=== PATIENT | male | born 1935 | race Caucasian/White ===

== ENCOUNTER 2017-04-04 09:15 | Inpatient (IN) | payer MEDICARE, BC ==
[~2017-04-04] VITALS: Ht 182.9 cm; Wt 74.9 kg
--- NOTE | ~2017-04-04 | DS ---
PATIENT'S NAME: JASON AMARO [facility] AGE: 82 Y [address] ROOM: [address] [address] LOCATION: [facility] ADMIT DATE: 04/04/2017 Discharge Summary DISCHARGE DATE: 04/13/2017 FAMILY PHYSICIAN: Steven Fox MD ATTENDING PHYSICIAN: Blossom Campos SUMMARY: TIME OF EXPIRATION: 1454. PRIMARY DIAGNOSIS: Septic shock. OTHER PRIMARY DIAGNOSES: Include: 1. Acute hypoxic respiratory failure. 2. Left lung collapse from mucus plugging. 3. Hyponatremia. 4. Atrial flutter versus atrial fibrillation. 5. Constipation followed with diarrhea. 6. Small bowel obstruction. 7. Pneumonia. 8. Non ST-segment elevation myocardial infarction. 9. Acute encephalopathy, acute condition. PROCEDURES DONE: For the patient includes central line placement by Dr. Alexandro Nowak, bronchoscopy by Dr. Maurer. LABORATORY DATA: On admission, sodium was 124 prior to expiration was 133, creatinine was stable throughout the hospital stay prior to expiration and on was 0.7, BUN was 25, BUN on admission was 29 which was also stable, potassium on admission 4.6, was repleted, and prior to expiration was 3.3, bicarb on admission was 30, prior to expiration was 26, phosphorus on admission was 4.3, prior to expiration was 1.9. Liver function tests were within normal limits. UA on admission: Leukocytes 25, nitrite negative, wbc rare, procalcitonin 0.35, urine osmolality 644, urine sodium level 40 on admission, CK-MB on admission was 51.4 which was the highest level obtained, amylase 39, lipase 41, repeat lipase 90, amylase 25. Urine sodium random on admission 39, highest level obtained was 110. Urine creatinine on admission was 137. MICROBIOLOGY DATA: Blood culture x2 sets, no growth after 5 days. Blood culture, which was done at the outside facility was Staph aureus per telephone report. Urine culture: No growth at 2 days. Bronchoalveolar lavage with normal respiratory cornelius. Stool for C. diff was negative. RADIOLOGY DATA: Multiple chest x-rays were done. ET tube and NG tube were in satisfactory position. Hazy interstitial parenchymal opacities are present in PATIENT'S NAME: JASON AMARO [facility] AGE: 82 Y [address] ROOM: [id number] [place], [place] [address] LOCATION: GICU ADMIT DATE: 04/04/2017 Discharge Summary DISCHARGE DATE: 04/13/2017 FAMILY PHYSICIAN: Steven Fox MD ATTENDING PHYSICIAN: Blossom Campos the perihilar and right basilar distributions. CT abdomen and pelvis, suspected ileus with no definitive evidence of obstruction. Continued followup is recommended. Small to moderate amount of free fluid within the abdomen and pelvis of uncertain etiology. X-ray of the wrist: External fixation device in place and complete oblique fracture through the midportion of the left second metacarpal bone at the site of the proximal pin of the external fixation device, comminuted distal radius fracture with impaction and slight bone displacement, bone fragmentation and deformity at the lunate which could reflect past surgical bone resection, bone trauma, bone infection, bone deformity at the scaphoid raises the possibility for scaphoid trauma either remote or acute, re CT imaging may be helpful. KUB: Severe ileus unchanged. Nasogastric tube extending below the left diaphragm with distal portion of the stomach with air-fluid, nondistended bowel loops in the abdomen consistent with adynamic ileus. Bowel pattern is stable. CT of the wrist: External fixation device in place, complete oblique fracture through the midportion of the second metacarpal bone at the area of the more proximal of the 2 external fixation device pins, evidence for small avulsion type fracture from the dorsal cortex of the scaphoid, multiple small ossific fragments at the expected area of the lunate, appearance could reflect past bone resection, chronic avascular necrosis, past trauma or past infection with resulting bone destruction, degenerative changes at the wrist with subchondral cyst in multiple carpal bones, minimally displaced intra-articular fracture involving the articular surface of the distal radius, comminuted transverse fracture at the distal metaphysis of the radius with impaction and slight displacement of multiple fracture fragments, a longitudinal fracture line extending proximally from the level of this transverse fracture. Serial chest x-rays: Nasogastric tube and right internal jugular catheter in place. Cardiac enlargement with vascular congestion. Infrahilar and bibasilar opacity, which could reflect edema or infiltrate and atelectasis. Pleural fluid and adjacent lung consolidation at the bases. Echocardiogram: Hypokinesis of the mid anterolateral, the mid inferolateral, the basal inferolateral, the apical lateral, and apical cap segments, contractility of all other segments appeared normal, EF 50%, left atrium is mildly dilated. Mild mitral regurgitation by color Doppler. There is mild to moderate aortic regurgitation by color Doppler. HOSPITAL COURSE: For history of present illness, please take a look at the H and P, which was done by Dr. Alexandro Nowak. Patient was admitted to ICU and was managed for septic shock. The source initially was probably secondary to bilateral lobe pneumonia versus probably also from the ileus. So, the patient was on the ventilator for about 2 days after which he was successfully extubated to nasal cannula. For his small bowel obstruction he had an NG tube placed and this was followed up with serial chest KUB's. Over the 48 hours he was successfully weaned off pressors and his blood pressure remained stable. He did also get the Nephrology consult given his presentation with PATIENT'S NAME: JASON AMARO [facility] AGE: 82 Y [address] ROOM: [place] [address] LOCATION: [facility] ADMIT DATE: 04/04/2017 Discharge Summary DISCHARGE DATE: 04/13/2017 FAMILY PHYSICIAN: Steven Fox MD ATTENDING PHYSICIAN: Blossom Campos hyponatremia and the hyponatremia was essentially managed by the Nephrology team and during the hospital course the patient did get 1 shot of DDAVP with also an improvement in his sodium level. He did also get a Cardiology consult given his significantly elevated cardiac enzymes and so he was managed for non ST-segment elevation KS, however, patient was not a candidate for cardiac cath and he was medically managed. He did also develop some paroxysmal atrial flutter versus AFib which Cardiology managed with amiodarone and the patient was successfully converted back to normal sinus rhythm. Following his extubation and with the resolving of his septic shock, the patient who was started on vancomycin and Zosyn from the first day of his hospital stay had his vancomycin discontinued by April 07 and by April 08 ultimately had his Zosyn discontinued as well since his cultures remained negative and there was no source of an infection. By the third day he was transferred out of the ICU to the regular floor and thereafter he developed some acute encephalopathy which was thought to be secondary to his baseline advanced dementia and also probably was thought to be multifactorial. While on the regular floor on May 19 patient again went into acute hypoxic respiratory failure and chest x-ray which was done showed complete left lung collapse which was thought to be secondary to mucus plugging. The patient subsequently had a bronchoscopy done which was successful. He was intubated and was returned back to the ICU. Also during this time, he did also develop some shock as well and had to be put on pressors. He was successfully weaned off pressors over the next couple of days thereafter and 2 days after the intubation he was put on CPAP. He was holding well on CPAP and on April 13 the patient was extubated, however, he developed worsening respiratory failure and the electronics specialist felt the patient was no longer a candidate for reintubation. Palliative consult was called. Prior to this time after the patient's second intubation family were already leaning towards comfort care. So following extubation for the second time with development of his worsening respiratory status the patient was put on BiPAP and family ultimately decided to make the patient comfort care. After family were present at bedside his BiPAP was discontinued and the patient at 1454 hours. The overall time spent on the discharge summary is about 35 minutes. MD HEATHER LÓPEZ/kaitlynn /[id number] d: 04/14/17 0233 t: 04/16/17 1651, DISCHARGE SUMMARY
--- NOTE | ~2017-04-04 | CON ---
PATIENT'S NAME: JASON AMARO [facility] AGE: 81 Y [address] ROOM: [place] [address] LOCATION: GICU ADMIT DATE: 04/04/2017 Consultation DISCHARGE DATE: FAMILY PHYSICIAN: PHYSICIAN, UNKNOWN ATTENDING PHYSICIAN: RODRIGO SKELTON DATE OF CONSULTATION: 04/05/2017 This is a [facility] Nephrology consultation. REASON FOR CONSULTATION: Hyponatremia. HISTORY OF PRESENT ILLNESS: This is an 81-year-old male patient with a history of dementia, who is transferred from [place], [place] with small-bowel obstruction and sepsis. The patient was initially admitted in [place], [place] for an injury to his right wrist, requiring external fixation. During the patient's stay, he did develop increasing abdominal distention as well as hypotension. The patient's blood pressures were reportedly in the 70s and 80s with increasing hypoxia. At the time of arrival, the patient was on BiPAP therapy and was shortly intubated thereafter. While in [place], the patient was noted to have a sodium of 118 with a normal creatinine. There was evidence of leukocytosis as well as hypotension. The patient was started on 3% saline as well as D5W for blood pressure support. On admission, the patient's sodium had come up to 122. D5W was stopped, and the patient was placed on normal saline by hospitalist. At the time of the exam, the patient is intubated and sedated with sodium level of 131. He continues on Levophed for blood pressure support. The patient is also started on Zosyn and vancomycin for antibiotic coverage. CT performed shows severely dilated bowel with large amount of gas. An NG tube was placed at the time of exam. PAST MEDICAL HISTORY: As listed above including. 1. Hypertension. 2. Dementia. 3. Coronary artery disease, status post coronary artery bypass grafting surgery with subsequent PCI x3. 4. GERD. 5. BPH. 6. Alcohol dependence. 7. Allergic rhinitis. 8. Dyslipidemia. PAST SURGICAL HISTORY: As listed above includin. Coronary artery bypass grafting surgery in 1998. 2. External fixator for the left radial fracture in March of 2017. ALLERGIES: NONE TO MEDICATION.PATIENT'S NAME: JASON AMARO [facility] AGE: 81 Y [address] ROOM: [id number] [place], [place] [address] LOCATION: [facility] ADMIT DATE: 04/04/2017 Consultation DISCHARGE DATE: FAMILY PHYSICIAN: PHYSICIAN, UNKNOWN ATTENDING PHYSICIAN: RODRIGO SKELTON CURRENT HOME MEDICATIONS: 1. Ascorbic acid 500 mg p.o. daily. 2. Aspirin 81 mg daily. 3. Benazepril 20 mg p.o. daily at bedtime. 4. Calcium carbonate 1 tablet p.o. t.i.d. 5. Vitamin D3 5000 units p.o. daily. 6. Docusate 100 mg p.o. daily. 7. Folic acid 1 mg daily. 8. Loratadine 10 mg daily. 9. Multivitamin 1 tablet daily. 10. Omeprazole 20 mg daily at bedtime. 11. Protonix 40 mg daily at bedtime. 12. MiraLAX 17 g p.o. daily p.r.n. constipation. 13. Zocor 40 mg p.o. daily at bedtime. 14. Terazosin 10 mg daily at bedtime. 15. Thiamine 100 mg p.o. daily. SOCIAL HISTORY: The patient is an ex-smoker, quit in 1983. He does drink 3 to 4 whiskey shots per day. There is no history of illicit drug use. He does live at home with his . FAMILY HISTORY: Reviewed and there is no history of renal disease or dialysis per the . REVIEW OF SYSTEMS: Essentially cannot obtain a full review of systems other than what is listed in the HPI due to the patient's intubated and sedated status. PHYSICAL EXAMINATION: VITAL SIGNS: Blood pressure is 112/60, temp is 98.0, heart rate is 94, respiratory rate is 25, weight is 76.4 kg, oxygen is 98% on 80% FiO2 with a PEEP of 8. GENERAL: On exam, this is an elderly male, who is intubated and sedated. HEENT: Head is normocephalic and atraumatic. Eyes: Pupils are equal, round, and reactive to light and accommodation. Nose: Midline. Mouth: No gingival bleeding. Oral mucosa is pink and moist. NECK: Soft and supple. There is no lymphadenopathy or carotid bruits. CARDIOVASCULAR: Regular rate and rhythm. Unable to appreciate any murmurs, rubs, or thrills. RESPIRATORY: Decreased breath sounds bilaterally with crackles noted in the bases bilaterally. The patient is intubated. ABDOMEN: Distended. Unable to obtain bowel sounds. EXTREMITIES: Show no signs of peripheral edema, clubbing, or cyanosis. NEUROLOGICAL: The patient is not able to follow commands as he is sedated currently.PATIENT'S NAME: JASON AMARO [facility] AGE: 81 Y [address] ROOM: [place] [address] LOCATION: [facility] ADMIT DATE: 04/04/2017 Consultation DISCHARGE DATE: FAMILY PHYSICIAN: PHYSICIAN, UNKNOWN ATTENDING PHYSICIAN: RODRIGO SKELTON LABORATORY DATA: Sodium at our facility is 122, up from 118 prior to arrival, is now 131 this morning; potassium 4.6, chloride 84, bicarb is 30, BUN 29, creatinine of 1. IMAGING DATA: Abdominal CT shows bilateral pleural effusions with dense consolidation, worse on the right than the left. He also has [id number] amount of free fluid within the abdomen and pelvis. Chest x-ray shows post intubation ET tube to be in good position, approximately at 3 cm above the edel. ASSESSMENT AND PLAN: 1. Hyponatremia. This is likely secondary to small-bowel obstruction. We have calculated the patient's free water deficit to be 1.1 L. At this time, we are going to continue D5W at a rate of 150 mL an hour over the next 4 hours. We will check a stat sodium at that time, and make further recommendations. Prior records do show the patient's baseline sodium to be 128. We will shoot for a goal of 127 to 130 for correction. 2. Acute respiratory failure. This is per Dr. Atwood. The patient is currently intubated and sedated. 3. History of alcohol abuse. This could be contributing to the patient's baseline low sodium. We will take this into consideration when we correct to a goal of 127 to 130. We will follow closely. We will check urine electrolytes frequently throughout his therapy. 4. Small-bowel obstruction, per hospitalist. This patient has been seen and assessed by Dr. Coleman. His care is being conducted in consultation with Dr. Coleman as well as me. We will plan further recommendations as they are forthcoming. In the interim, the patient is to continue D5W at a rate of 150 mL an hour. KARL HILLS DNP, APRN FOR MD ALEXIS ALBRECHT/modl /[id number] d: 04/06/172114 t: 04/16/17 1634, CONSULTATION REPORT
--- NOTE | ~2017-04-04 | OR ---
PATIENT'S NAME: JASON AMARO [facility] AGE: 82 Y [address] ROOM: [place] [address] LOCATION: GICU ADMIT DATE: 04/04/2017 OR/Procedure Report DISCHARGE DATE: FAMILY PHYSICIAN: Steven Fox MD ATTENDING PHYSICIAN: RODRIGO SKELTON SURGEON: Patrice Maurer MD LEGAL RECORDS CLERK: DATE OF PROCEDURE: 04/04/2017 PROCEDURE: Fiberoptic bronchoscopy with therapeutic suctioning. INDICATIONS FOR PROCEDURE: Left lung collapse with mediastinal shift. CONSENT: Procedure was done emergently as the patient was hypotensive and severely hypoxic. PROCEDURE IN DETAIL: After the initial evaluation, the patient was then put in supine position, bronchoscope was used through a 7.5 ET tube, was advanced to the tracheobronchial tree. The patient tolerated the procedure well. There was no immediate complications, findings and procedure, the visualized portion of the trachea revealed that the trachea is normal in caliber with no endobronchial lesions or secretions. The right mainstem was patent, right upper, middle, and lower lobes were patent with no endobronchial lesions or excessive secretions. The left mainstem was completely blocked by a mucous plug, which was suctioned out, after that, the left upper was patent, the left lower was filled with secretions, which was suctioned out and washed out. The patient tolerated the procedure well. There were no immediate complications. Thank you for allowing me to participate in care of this patient. MD JEAN XIONG/modl /[id number] d: 04/11/17250 t: 05/04/17 1043, OPERATIVE SUMMARY
--- NOTE | ~2017-04-04 | CON ---
PATIENT'S NAME: JASON AMARO [facility] [place] AGE: 81 Y [address] ROOM: [address] [address] LOCATION: [facility] ADMIT DATE: 04/04/2017 Consultation DISCHARGE DATE: FAMILY PHYSICIAN: Physician, Unknown ATTENDING PHYSICIAN: Blossom Campos DATE OF CONSULTATION: 04/07/2017 CHIEF COMPLAINT: Left wrist pain. HISTORY OF PRESENT ILLNESS: Mr. Amaro is a pleasant, 81-year-old, gentleman with a history of dementia, who was transferred from [place], [place] with a small bowel obstruction and sepsis. He initially was admitted to the hospital in [place] for an injury to his left wrist which appeared to be in open fracture that required irrigation and debridement, plus placement of a spanning external fixator device. Per the patient's report, though he is difficult to communicate with, he may have sustained a 2nd fall. For which the x-ray appears to show a fracture of the 2nd metacarpal around the more proximal pin site in the hand. The patient otherwise reports now that he is comfortable with the external fixator in place. He reports that the wrist is still quite sore, though the external fixator provides stability. The patient had been previously intubated, though it is now extubated with an NG tube in place. Despite some confusion, he is able to answer questions directly. Currently, the patient denies any constitutional symptoms of fever, chills, or night sweats. He also denies any dizziness, chest pain, shortness of breath, blurred vision, nausea, vomiting, or diarrhea. REVIEW OF SYSTEMS: A 10-point review of systems is otherwise as mentioned above. The patient's issue in this case pertains to his left upper extremity, the issue is musculoskeletal, there is pain, swelling, and some discomfort at the left wrist. There is a spanning external fixator in place. PAST MEDICAL HISTORY: Hypertension, dementia, coronary artery disease, GERD, BPH, alcohol dependence, allergic rhinitis, dyslipidemia. PAST SURGICAL HISTORY: Includes coronary artery bypass grafting surgery 1998, there was placement of external fixator, spanning external fixator of the left upper extremity done in March of 2017. ALLERGIES: PATIENT'S NAME: JASON AMARO [facility] [place] AGE: 81 Y [address] ROOM: [address] [address] LOCATION: [facility]U ADMIT DATE: 04/04/2017 Consultation DISCHARGE DATE: FAMILY PHYSICIAN: Physician, Unknown ATTENDING PHYSICIAN: Blossom Campos NO KNOWN DRUG ALLERGIES. MEDICATIONS: Currently include, 1. Cordarone. 2. Dextrose. 3. Heparin. 4. Hytrin. 5. Calcium chloride. 6. Levophed. 7. Lipitor. 8. Protonix. 9. Vancomycin. 10. Zosyn. SOCIAL HISTORY: The patient has a previous history of tobacco use, though he quit in 1983. He drinks 3-4 whiskey shots per day. There is no history of illicit drug use. He lives at home with his . FAMILY HISTORY: Reviewed. There is no history of renal disease with dialysis per his . PHYSICAL EXAMINATION: VITAL SIGNS: Temperature 98.5, respirations 28, heart rate of 95, blood pressure 158/89. GENERAL: He is awake and alert x2. He is he is currently extubated. He is able to answer pointed questions. He is in no acute distress. HEENT: Normocephalic and atraumatic. Extraocular movements are intact. PERRLA. Moist mucous membranes. Oropharyngeal airway is clear. NECK: Supple. Trachea is in midline. CARDIOVASCULAR: Regular rate and rhythm. CHEST: Normal. Symmetric respirations observed bilaterally. ABDOMEN: Soft. Nontender, nondistended. PELVIS: Stable. MUSCULOSKELETAL: Left upper extremity: Focal examination of the patient's left upper extremity reveals that he is grossly neurologically intact distally. He has able to range his fingers without difficulty. There is tenderness to palpation of the wrist along with swelling. There was approximately 4 cm longitudinal incision over the ulnar border of the wrist that appears to have been closed with a nylon suture. Likely statement services representative of previous open fracture, there was a spanning external fixator in place. The patient did note sensation to be intact to light touch throughout the AIN/PIN/median/radial/ulnar nerve distributions. PATIENT'S NAME: JASON AMARO [facility] [place] AGE: 81 Y [address] ROOM: [address] [address] LOCATION: [facility]U ADMIT DATE: 04/04/2017 Consultation DISCHARGE DATE: FAMILY PHYSICIAN: Physician, Unknown ATTENDING PHYSICIAN: Blossom Campos IMAGING: Plain radiographs of the left wrist reveal evidence of a comminuted intra- articular distal radius fracture that appears out to length. There was evidence of a spanning external fixator in place. There appears to be a fracture of the 2nd metacarpal at one of the pin sites. LABORATORY DATA: Includes CBC: Hemoglobin of 8.9, hematocrit 25.7, white blood cell count of 7.9, platelet count 189. Chem-7 reveals sodium 131, potassium 3.3, chloride 97, CO2 26, BUN 8 and creatinine 0.6, and glucose 124. IMPRESSION: 1. Left comminuted intra-articular open fracture of the distal radius with oblique fracture of the midportion of the second metacarpal. 2. Severe hyponatremia. 3. Acute respiratory failure. 4. Alcohol dependence. 5. Small bowel obstruction. 6. Septic shock. PLAN: I had a conversation with the patient this morning to the best of my ability. He does report pain in the wrist. There is an external fixator in the left upper extremity in place. I suspect the patient may have had a fall subsequent to placement of this external fixator as there is also now fracture of the 2nd metacarpal at one of the distal pin sites. Regardless, the external fixator has held the distal radius out to length. I suspect the patient may have had an open fracture, seeing that there is also sutures at the ulnar border of the wrist that appear to be healing. Based on the current set of circumstances, I am going to recommend a CT scan of the left wrist and hand to better characterize the fractures. As far as long-term treatment, this injury could be potentially treated definitively in this spanning external fixator for 8- 12 weeks, if the patient's medical status precludes a trip to the operating room. If the patient is medically stable, I would move to take the patient to the operating room to remove the spanning external fixator and perform an open reduction and internal fixation of his left distal radius and 2nd metacarpal bones. I did discuss the risks, benefits, and alternatives pursuing a surgical intervention with the patient in detail. He understands this. I will likely have to speak to the family as well, to obtain any form of consent, though under the circumstances, if the patient is medically cleared, I would like to proceed with surgery in the next week. For now, local pin care to the external fixator at pin sites can be done with Hibiclens and warm water. A Kerlix dressing may be placed around the pin sites for now. He may consult Physical Therapy and Occupational Therapy for range of motion of the elbow and fingers. I will await the results of the CT scan of the wrist and hand going PATIENT'S NAME: JASON AMARO [facility] [place] AGE: 81 Y [address] ROOM: [place] [address] LOCATION: [facility] ADMIT DATE: 04/04/2017 Consultation DISCHARGE DATE: FAMILY PHYSICIAN: Physician, Unknown ATTENDING PHYSICIAN: Blossom Campos forward. MD LISA GEORGE/kaitlynn /[id number] d: 04/07/17 1252 t: 04/08/17 1043, CONSULTATION REPORT
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
--- NOTE | ~2017-04-04 | OR ---
PATIENT'S NAME: JASON AMARO [facility] AGE: 82 Y [address] ROOM: [place] [address] LOCATION: GICU ADMIT DATE: 04/04/2017 OR/Procedure Report DISCHARGE DATE: FAMILY PHYSICIAN: Steven Fox MD ATTENDING PHYSICIAN: RODRIGO SKELTON SURGEON: Jersey Andersen MD STOCK RAISER: DATE OF PROCEDURE: 04/10/2017 PROCEDURE: Intubation. INDICATION: Acute hypoxic respiratory failure. PROCEDURE NOTE: Decision to do intubation was emergent. The patient was preoxygenated with 15 L of nasal cannula as well as 15 L of non-rebreather mask. Vitals were stable before the intubation. Induction was achieved using ketamine and 10 of etomidate. Using a GlideScope, vocal cords were visualized. ET tube of 7.5 was passed and was seen advancing through the vocal cords. End-tidals were noted to be 35. Tube length at 25 cm at the lips. Post procedure, the patient did develop shock with the systolic blood pressures diving down into the 40s, which was secondary to his left lung collapse, decreased venous return, as well as medication induced. Push dose pressor agents were used to restore the blood pressure. The patient was stabilized after doing the emergent bronchoscopy by Dr. Maurer. Post intubation chest x-ray showed adequate positioning of the tube. The patient was placed in the ICU. MD BRIANNA CHRISETNSEN/modl /[id number] d: 04/11/17 0445 t: 04/27/17 1512, OPERATIVE SUMMARY
--- NOTE | ~2017-04-04 | OR ---
PATIENT'S NAME: JASON AMARO [facility] AGE: 81 Y [address] ROOM: [place] [address] LOCATION: GICU ADMIT DATE: 04/04/2017 OR/Procedure Report DISCHARGE DATE: FAMILY PHYSICIAN: PHYSICIAN, UNKNOWN ATTENDING PHYSICIAN: RODRIGO CAMPOS SURGEON: Rodrigo Campos MD FLOOR FRAMER: DATE OF PROCEDURE: 04/04/2017 PROCEDURE PERFORMED: Right internal jugular venous catheter with ultrasound. INDICATION: Acute respiratory failure and shock with metabolic acidosis. CONSENT: Consent was given by the patient's family. PROCEDURE SUMMARY: A time-out was performed. The patient's right neck region was prepped and draped in sterile fashion using chlorhexidine. Scrubbed anesthesia was achieved with 1% lidocaine solution. The right internal jugular vein was assessed under ultrasound guidance using a fine needle. Ultrasound images were not permanently documented, however. Venous blood was withdrawn and a guidewire was advanced through the needle and the needle was withdrawn. A small incision was made with a 10 blade scalpel. A dilator was advanced over the guidewire until appropriate dilation was obtained. A 7- [place] central venous triple-lumen catheter was advanced over the guidewire and secured into the sutures at 18 cm. The guidewire was removed. At the time of procedure completion, all ports aspirated and flushed properly. Postprocedure x-ray showing appropriate placement of catheter tip of the cavoatrial junction. COMPLICATIONS: None. ESTIMATED BLOOD LOSS: Less than 10 mL. RODRIGO CAMPOS MD BG/modl /[id number] d: 04/04/172041 t: 04/27/17 1524, OPERATIVE SUMMARY
--- NOTE | ~2017-04-04 | CON ---
PATIENT'S NAME: JASON AMARO [facility] AGE: 82 Y [address] ROOM: [place] [address] LOCATION: GICU ADMIT DATE: 04/04/2017 Consultation DISCHARGE DATE: 04/13/2017 FAMILY PHYSICIAN: Steven Fox MD ATTENDING PHYSICIAN: Blossom Campos DATE OF CONSULTATION: 04/13/2017 PALLIATIVE MEDICINE CONSULTATION LOCATION: ICU Room [facility]. REFERRING PROVIDER: Maninder hWite MD CHIEF COMPLAINT/REASON FOR CONSULTATION: Palliative Care referral for goals of care and most likely transition to comfort measures only. HISTORY OF PRESENT ILLNESS: The patient is an 82-year-old male with a history of dementia, who is transferred to [facility] from [place], [place] where he was inpatient and being treated with antibiotics for a possible infection in his wrist. While in [place], the patient developed hypotension, hypoxia, and abdominal distention and was transferred to higher level of care for evaluation of his small bowel obstruction. On evaluation here, the patient was found to be in septic shock secondary to either bilateral lobe pneumonia versus an ileus. He required ventilation. He was extubated after two days and was in the progressive care unit where he developed some encephalopathy and respiratory distress. He was found to have a collapsed lung. He underwent bronchoscopy and was reintubated. On the morning of my consultation, the patient had been extubated to high-flow oxygen, but later developed acute respiratory failure, and was placed on BiPAP. Given the patient's overall poor condition, Palliative Care was consulted to assist family with goals of care conversation as prior to this second intubation family had already been considering comfort measures only. PAST SURGICAL HISTORY: Left ulnar and radius fracture with external fixator placement. PAST MEDICAL HISTORY: 1. Dementia. 2. Recent falls with left radius and ulnar fractures. 3. Hypertension. PATIENT'S NAME: JASON AMARO [facility] AGE: 82 Y [address] ROOM: [place] [address] LOCATION: GICU ADMIT DATE: 04/04/2017 Consultation DISCHARGE DATE: 04/13/2017 FAMILY PHYSICIAN: Steven Fox MD ATTENDING PHYSICIAN: Blossom Campos 4. Hyperlipidemia. 5. BPH. 6. Coronary artery disease. MEDICATIONS: Please see current MAR. ALLERGIES: NO KNOWN ALLERGIES. SOCIAL HISTORY: No history of tobacco or alcohol use. Prior to this, patient was living at home with his as primary caregiver. FAMILY HISTORY: Reviewed with family and noncontributory. REVIEW OF SYSTEMS: As per HPI, the patient is a poor historian and is unable to complete full review of systems. PHYSICAL EXAMINATION: VITAL SIGNS: Blood pressure 172/88, heart rate 104, temperature 98.0, respirations 38, and O2 saturation is 88% on 100% on the BiPAP. GENERAL: Reveals a frail-appearing elderly white male, who is lying in the intensive care unit. Does appear to be in moderate respiratory distress on the BiPAP. He opens his eyes. Does not follow commands. Does squeeze my hand when I hold his hand. Otherwise, is nonverbal and does not answer questions for me. HEENT: Normocephalic and atraumatic. Pupils are equal and reactive to light. Sclerae nonicteric. Does have the BiPAP on. He breathes with his mouth wide open. Tongue and mucous membranes are dry. CARDIOVASCULAR: Heart tones are regular. Tachycardic. I am not able to note a murmur. RESPIRATORY: Respirations are labored. Tachypneic. Open-mouth breathing. Lung sounds are coarse bilaterally. Does have some occasional short periods of apnea. GASTROINTESTINAL: Abdomen is soft. Bowel sounds are present. GENITOURINARY: Orr catheter is intact with adequate amounts of leigh ann urine. MUSCULOSKELETAL: Does have an external fixator to his left wrist. There is no erythema or swelling. SKIN: Warm and dry. No unusual lesions. Did not examine backside. NEUROLOGICAL: Moves spontaneously. Does not follow commands. Does squeeze my hand with stimuli. PATIENT'S NAME: JASON AMARO [facility] AGE: 82 Y [address] ROOM: [place] [address] LOCATION: GICU ADMIT DATE: 04/04/2017 Consultation DISCHARGE DATE: 04/13/2017 FAMILY PHYSICIAN: Steven Fox MD ATTENDING PHYSICIAN: Blossom Campos IMPRESSION AND PLAN: 1. Respiratory distress. We will add p.r.n. morphine and Ativan as well as give a dose of Robinul prior to taking off the BiPAP. 2. Frailty. 3. Code Status: The patient is a DNR. I met with the patient's family at bedside. They informed me that they wish to let the patient be comfortable. This is what they had told the nurse on the phone prior to arriving here. Discussed with them their concerns as far as symptom management. Provided education to them in regard to using morphine and Ativan to help with air hunger and anxiety as well as giving some Robinul to help with secretions so that to help prevent other distress especially for the family. Provided emotional support, offered spiritual care which was declined by the family. The patient was removed from the BiPAP with myself and ICU nurse present after premedicating with IV morphine and Robinul as well as Ativan. The patient remained comfortable and fairly quickly and at 1454 hours with myself, ICU nurse, and family at the bedside. Provided emotional support for the family. A total of 65 minutes were spent at bedside, greater than 50% of this time was spent in providing education to family on end-of-life symptom management as well as giving orders for symptom management during the withdrawal process. Thank you for allowing me to assist with this patient and family. FAB JACQUES NP FOR JESSICA SPRINGER MD DLS/modl /[id number] CC: Maninder White MD d: 04/17/17 1405 t: 04/24/17 1019, CONSULTATION REPORT
--- NOTE | ~2017-04-04 | CON ---
PATIENT'S NAME: JASON AMARO [facility] AGE: 81 Y [address] ROOM: [place] [address] LOCATION: GICU ADMIT DATE: 04/04/2017 Consultation DISCHARGE DATE: FAMILY PHYSICIAN: PHYSICIAN, UNKNOWN ATTENDING PHYSICIAN: RODRIGO SKELTON REQUESTING: Hospitalist Service. REASON: Elevated cardiac enzymes. HISTORY OF PRESENT ILLNESS: The patient is an 81-year-old gentleman who was transferred to [facility] from [facility] in [place] on April 04. The patient was initially in a swing bed there following a left radial fracture, but then he developed respiratory distress, a distended abdomen, progressive hyponatremia, and hypoxemia, and he was transferred to [facility] where his evaluation showed septic shock and hypoxic respiratory failure. The patient was placed on antibiotics, vasopressor with norepinephrine, and was intubated. He had profound hyponatremia with a sodium of 118, and that was addressed as well by the Renal Service. Yesterday, a set of cardiac enzymes was obtained that showed a total CK of 564, CK-MB of 51.4, and troponin 28.6. I could not find an electrocardiogram. Today, the repeat enzymes, CK is down to 177, the CK-MB is down to 12, and the troponin is down to 10. The proBNP on April 04 was 4451. An electrocardiogram today shows atrial flutter, low voltage in the limb leads, overall rate of 106, occasional premature ventricular contractions, right bundle-branch block, and no significant ST elevation or depression. His chest x-ray shows small effusions and congestion. PAST MEDICAL HISTORY: Obtained from the chart and the registered nurse. The family is not present. REVIEW OF SYSTEMS: Impossible. PAST MEDICAL HISTORY: Positive for coronary artery disease with remote coronary artery bypass graft and subsequent 3 stents, details unknown to me. He also has hypertension, dementia, active alcohol use, and benign prostatic hypertrophy. MEDICATIONS: His outpatient medications include: 1. Aspirin. 2. Benazepril. 3. Omeprazole. PATIENT'S NAME: JASON AMARO [facility] AGE: 81 Y [address] ROOM: [place] [address] LOCATION: GICU ADMIT DATE: 04/04/2017 Consultation DISCHARGE DATE: FAMILY PHYSICIAN: PHYSICIAN, UNKNOWN ATTENDING PHYSICIAN: RODRIGO SKELTON 4. Simvastatin. 5. Terazosin. 6. . 7. Protonix. 8. Levophed. 9. Vancomycin. 10. Versed. 11. Zosyn. 12. Hytrin. 13. Zocor. 14. Heparin subcutaneously for DVT prophylaxis. PHYSICAL EXAMINATION: GENERAL: An elderly gentleman who appears somewhat older than his chronologic age. VITAL SIGNS: Height is 6 feet, weighs 76.3 kg. Blood pressure 101/67, pulse 91, and temperature 98.9. NECK: No obvious jugular venous distention. No carotid bruits. LUNGS: Clear anteriorly. HEART: Distant, irregular first and second heart sounds. ABDOMEN: Somewhat protruding. Overall, soft. LOWER EXTREMITIES: Mild edema of the thighs and decreased pedal pulses. DIAGNOSTIC STUDIES: Described. IMPRESSION: 1. Non-ST elevation myocardial infarction. The peak enzymes were yesterday. So, 24 hours later, the patient appears to tolerate this well, and given his comorbidities, he is not a very good candidate for invasive approach. 2. New-onset atrial flutter. We will try to cardiovert with intravenous amiodarone. An echocardiogram was performed, and I will follow with this. Thank you for allowing us to participate in the care of Mr. Amaro. GALENAYOTISROHIT PATTEN MD PE/modl /[id number] d: 04/06/17 1525 t: 04/08/17 1011, CONSULTATION REPORT
--- NOTE | ~2017-04-04 | HP ---
PATIENT'S NAME: JASON AMARO [facility] AGE: 81 Y [address] ROOM: [place] [address] LOCATION: [facility] ADMIT DATE: 04/04/2017 History & Physical DISCHARGE DATE: FAMILY PHYSICIAN: PHYSICIAN, UNKNOWN ATTENDING PHYSICIAN: RODRIGO SKELTON DATE OF SERVICE: CHIEF COMPLAINT: Small bowel obstruction, septic shock. HISTORY OF PRESENT ILLNESS: This is an 81-year-old male with a history of dementia who is transferred from [place], [place] for evaluation and workup of hypertension, hypoxia, and abdominal distention. The patient initially was admitted there after he had an injury to his wrist and was found to have a fracture that was managed with an external fixation. The patient during the subsequent stay there was noted to have increasing abdominal distention and then by today morning, continued to have worsening distention with blood pressure in the 70s and 80s as well as increasing hypoxia. The patient on my evaluation here after his arrival appears agitated and confused, but can somewhat answer questions. He is also complaining of abdominal distention and discomfort which is visible by reactions during my exam. I was not able to get any further history from him due to the patient' status currently. PAST MEDICAL HISTORY: Dementia, hypertension, hyperlipidemia, and BPH. SOCIAL HISTORY: No reports of alcohol, drugs, or tobacco use. FAMILY HISTORY: Unable to gather this information due to the patient's mental status and family was not around to gather this information as well. REVIEW OF SYSTEMS: Again, unable to conduct a full review of systems due to the patient's mental status and there was not anyone in the family to help answer some questions as well. PHYSICAL EXAMINATION: VITAL SIGNS: Blood pressure 79/52 on presentation, afebrile, O2 saturation 88%, respiratory rate 22. GENERAL: Ill-appearing elderly male, appears to be in significant amount of stress. PATIENT'S NAME: JASON AMARO [facility] AGE: 81 Y [address] ROOM: [place] [address] LOCATION: [facility] ADMIT DATE: 04/04/2017 History & Physical DISCHARGE DATE: FAMILY PHYSICIAN: PHYSICIAN, UNKNOWN ATTENDING PHYSICIAN: RODRIGO SKELTON HEENT: Dry mucosal membranes. Conjunctival pallor noted. No scleral icterus. SKIN: Without rash or lesions. CHEST: Diminished breath sounds diffusely, but no wheezing. HEART: S1, S2. Regular rate and rhythm. Tachycardic. ABDOMEN: Distended, tympanic, tender to palpation diffusely with minimal bowel sounds. NEUROLOGIC: Grossly nonfocal. MUSCULOSKELETAL: Left wrist external fixation device in place. ASSESSMENT AND PLAN: 1. Severe sepsis with shock. Likely origin would be abdominal etiology noting his abdominal distention and possible small bowel obstruction. We will treat with aggressive fluid resuscitation, broad-spectrum antibiotics, and work up abdominal process with a stat CT scan. 2. Small bowel obstruction. NG in place with significant amount of bilious material suctioned out. We will get a stat CT scan to assess further. 3. Hyponatremia. Sodium from outside labs was 118 on presentation. This is likely due to his abdominal issues. We will treat with IV normal saline and closely monitor sodium levels. 4. Hypertension. We will hold all blood pressure medications in the setting of sepsis. 5. Dementia. This is stable. 6. Hyperlipidemia. We will continue his home medications. 7. Benign prostatic hypertrophy. We will continue his home medications as well. 8. Code status. Per report from the outside facility that he is DNR/DNI. 9. Deep venous thrombosis prophylaxis. We will use subcutaneous heparin t.i.d. MD GEOVANNA BERUMEN/kaitlynn /[id number] D: [id number] T: [id number] HISTORY & PHYSICAL
--- NOTE | ~2017-04-04 | ECHO ---
Transthoracic Echocardiography Report (TTE) Demographics Patient Name JASON AMARO Date of Study 04/06/2017 Patient Number [id number] Visit Number [id number] Date of 1935 Room Number G6215 Accession Number [id number] Gender Male Age 81 year(s) Referring Rai Corea Jet Man Eliana Lobato [facility] Physician Physician Interpreting Alvina Garcia Procurement Coordinator Physician A MD Supervising Ordering Physician MD/MLP Nurse Stress Head Counselor Conclusions Contractility Score Summary At rest the following contractility abnormalities were noted: Hypokinesis of the Mid inga-lateral, the Mid infero-lateral, the Basal infero-lateral, the Apical lateral and the Apical cap segments. Contractility of all other segments appeared normal. Summary The estimated left ventricular ejection fraction is 50%. Diastolic function indeterminate due to patient's arrhythmia. The left atrium is mildly dilated by LA volume index measurement. Mild mitral regurgitation by color Doppler. There is mild to moderate aortic regurgitation by color Doppler. Mild tricuspid regurgitation by color Doppler. There is mild pulmonary hypertension. The pulmonary pressure (RVSP) is 40 mmHg. Mild pulmonic valve regurgitation by color Doppler. Procedure Type of Study TTE procedure:2D Echocardiogram. Procedure Date Date: 04/06/2017 Start: 10:35 AM Study Location: Inpatient Portable Technical Quality: Adequate visualization Indications:Dyspnea/SOB. Appropriate Use Criteria: 9 Patient Status: Routine HR: 91 bpm BP: 108/49 mmHg M-Mode/2D Measurements LV Diastolic Dimension: 3.58 cm LV Systolic Dimension: 2.46 cm LV Septum Diastolic: 1.04 cm LV PW Diastolic: 1.07 cm AO Root Dimension: 2.8 cm Cardiac Output: 4.57 l/min LA Dimension: 4.2 cm EF Estimated: 55 % LVOT: 2 cm LVOT VTI: 16 cm RV Base: 2.56 cm LV Stroke volume: 50.24 ml RV Length: 7.72 cm TAPSE: 1.97 cm TDI-S': 11.3 cm/s Doppler Measurements AV Peak Velocity: 1.16 m/s MV Peak E-Wave: 1.17 m/s AV Peak Gradient: 5.38 mmHg AV Mean Gradient: 3 mmHg MV P1/2t: 45 msec LVOT Peak Velocity: 1.08 m/s TR Velocity:2.74 m/s PV Peak Velocity: 1.34 m/s TR Gradient:30.03 mmHg PV Peak Gradient: 7.18 mmHg Estimated RAP:10 mmHg Estimated PASP: 40.03 mmHg Estimated RVSP: 40 mmHg A' Septal Velocity: 0.05 m/s E' Septal Velocity: 0.14 m/s Findings Left Ventricle Diastolic function indeterminate due to patient's arrhythmia. The left ventricle is normal in size . Mild concentric left ventricular hypertrophy. Right Ventricle Normal right ventricle structure and function. Left Atrium The left atrium is mildly dilated by LA volume index measurement. Right Atrium Normal right atrial size. IVC not visualized, no subcostal window Mitral Valve Mild mitral regurgitation by color Doppler. Aortic Valve There is mild to moderate aortic regurgitation by color Doppler. Tricuspid Valve Mild tricuspid regurgitation by color Doppler. There is mild pulmonary hypertension. The pulmonary pressure (RVSP) is 40 mmHg. Pulmonic Valve Mild pulmonic valve regurgitation by color Doppler. Pericardial Effusion No evidence of pericardial effusion. Pleural Effusion No evidence of pleural effusion. Contractility Score LV regional wall motion:(0-Non visualized 1-Normal 2-Hypokinesis 3-Akinesis 4-Dyskinesis 5-Aneurysm) Signature dtt: Nora Tinsley dtd: 04/06/17 1035 Physician Self Edit
[2017-04-04] MEDS ORDERED: ASPIRIN LO-DOSE81 MG PO (10:59)
[2017-04-04] MEDS ORDERED: ASCORBIC ACID500 MG PO (10:59)
[2017-04-04] MEDS ORDERED: BACTRIM DS1 TAB PO (10:59)
[2017-04-04] MEDS ORDERED: COLACE100 MG PO (11:00)
[2017-04-04] MEDS ORDERED: LOTENSIN20 MG PO (11:00)
[2017-04-04] MEDS ORDERED: CALCIUM 600 +1 EA12 PO (11:00)
[2017-04-04] MEDS ORDERED: FOLIC ACID1 MG PO (11:01)
[2017-04-04] MEDS ORDERED: MIRALAX17 GM PO (11:01)
[2017-04-04] MEDS ORDERED: CLARITIN10 MG PO (11:01)
[2017-04-04] MEDS ORDERED: PRILOSEC20 MG PO (11:02)
[2017-04-04] MEDS ORDERED: MULTIPLE VITAM1 EACH PO (11:02)
[2017-04-04] MEDS ORDERED: TERAZOSIN HCL10 MG PO (11:03)
[2017-04-04] MEDS ORDERED: ZOCOR40 MG PO (11:03)
[2017-04-04] MEDS ORDERED: PROTONIX40 MG PO (11:03)
[2017-04-04] MEDS ORDERED: VITAMIN D35000 UNI1 PO (11:04)
[2017-04-04] MEDS ORDERED: THIAMINE HCL100 MG PO (11:04)
[2017-04-04 11:20] LABS: BICARBONATE 31.2 mmol/L (18.0-23.0); PCO2 54 mmHg (35-45); PO2 66 mmHg (80-90)
[2017-04-04 12:00] LABS: BASOPHIL % 0.2 %; HEMATOCRIT 29.1 % (33.0-50.0); HEMOGLOBIN 10.2 g/dL (11.0-16.0); IMMATURE GRANULOCYTE # 0.2 K/uL (0.0-0.3); IMMATURE GRANULOCYTE % 1.1 %; LYMPHOCYTE # 0.5 K/uL (0.8-4.0); LYMPHOCYTE % 2.6 %; MCH 34.2 pg (27.0-34.0); MCHC 35.1 gm/dL (32.0-36.5); MCV 97.7 fl (83.0-98.0); MONOCYTE # 1.4 K/uL (0.0-1.0); MONOCYTE % 7.6 %; MPV 8.6 fl (9.4-12.4); NEUTROPHIL # (ANC) 15.8 K/uL (1.4-9.0); NEUTROPHIL % 88.5 %; NRBC % 0 /100WBC (0-0.00); PLATELET COUNT 244 K/uL (150-450); RBC 2.98 M/uL (3.50-5.50); RDW-CV 12.8 % (11.9-14.6)
[2017-04-04 12:02] LABS: WBC 17.9 K/uL (4.0-11.0)
[2017-04-04 12:12] LABS: ALBUMIN 2.7 gm/dL (3.5-5.0); ANION GAP 12.6 (10.0-19.0); BLOOD UREA NITROGEN 29 mg/dL (6-24); CHLORIDE 84 mMol/L (96-110); CO2 30 mMol/L (22-32); ESTIMATED GFR (MDRD EQUATION) > 60; MAGNESIUM 1.8 mg/dL (1.8-2.6); PHOSPHORUS 4.3 mg/dL (2.5-4.9); POTASSIUM 4.6 mMol/L (3.7-5.1); SODIUM 122 mMol/L (135-145)
[2017-04-04 15:28] LABS: BICARBONATE 27.9 mmol/L (18.0-23.0); PO2 75 mmHg (80-90)
[2017-04-04 15:29] LABS: PCO2 43 mmHg (35-45)
[2017-04-04 15:51] LABS: BILIRUBIN URINE NEGATIVE (NEGATIVE); BLOOD URINE 250 /UL (NEGATIVE); GLUCOSE URINE NEGATIVE (NEGATIVE); KETONE URINE 5 mg/dL (NEGATIVE); LEUKOCYTES URINE 25 /UL (NEGATIVE); NITRITE URINE NEGATIVE (NEGATIVE); PROTEIN URINE 30 mg/dL (NEGATIVE); SPEC GRAVITY URINE 1.025 (1.003-1.035); UROBILINOGEN URINE NORMAL (NORMAL)
[2017-04-04 15:58] LABS: COLOR URINE YELLOW (YELLOW); TURBIDITY URINE 1+ (CLEAR)
[2017-04-04 15:59] LABS: BACTERIA URINE NEGATIVE (NEGATIVE); EPITHELIAL URINE RARE #/HPF (NEGATIVE); RBC URINE 20-50 #/HPF (NEGATIVE); WBC URINE RARE #/HPF (NEGATIVE)
--- NOTE | 2017-04-04 17:12 | NUR ---
D: RESP DISTRESS I: VENT, I R: PT ARRIVED IN ICU AROUND 10:00, PLACED ONTO BIPAP 10/30 ALMOST IMMEDIATELY, PT WAS ON 100% FIO2 & PEEP OF 8 BUT HIS SAT'S WOULD NOT COME ABOVE MID 80'S, PT WAS THEN INTUBATED AROUND 13:55, PT HAS AN 8.0 ETT SECURED @ 23 @ TEETH W/ ETAD, INITIAL ETCO2 WAS 44, VENT SETTINGS AC 16, VT 550, P8, WEANED FIO2 TO 60%, SPUTUM SAMPLE SENT P: CONT TO WEAN FIO2 TOLERATES
[2017-04-04 18:04] LABS: ALBUMIN 2.3 gm/dL (3.5-5.0); ALK PHOS 45 IU/L (33-138); ALT 23 IU/L (12-78); AST 162 IU/L (10-40); BLOOD UREA NITROGEN 25 mg/dL (6-24); CO2 27 mMol/L (22-32); CREATININE 0.9 mg/dL (0.6-1.3); ESTIMATED GFR (MDRD EQUATION) > 60; POTASSIUM 3.9 mMol/L (3.7-5.1); TOTAL BILIRUBIN 0.8 mg/dL (0.0-1.5)
[2017-04-04 18:07] LABS: ANION GAP 11.9 (10.0-19.0); CALCIUM 7.3 mg/dL (8.5-10.5); CHLORIDE 89 mMol/L (96-110); SODIUM 124 mMol/L (135-145); TOTAL PROTEIN 4.5 g/dL (6.0-8.4)
--- NOTE | 2017-04-04 19:03 | NUR ---
Significant Event:Pt admitted, intubated, CT non-contrast abdomen/pelvis completed, and central line place, pt max on levophed at 0.3 mcg/kg/min per MD order and see nurses notes for further details Follow up:
[2017-04-04 22:57] LABS: ALBUMIN 2.2 gm/dL (3.5-5.0); ANION GAP 11.5 (10.0-19.0); BLOOD UREA NITROGEN 22 mg/dL (6-24); CALCIUM 7.6 mg/dL (8.5-10.5); CHLORIDE 92 mMol/L (96-110); CO2 27 mMol/L (22-32); CREATININE 0.8 mg/dL (0.6-1.3); ESTIMATED GFR (MDRD EQUATION) > 60; POTASSIUM 3.5 mMol/L (3.7-5.1); SODIUM 127 mMol/L (135-145)
[2017-04-04 22:58] LABS: PHOSPHORUS 1.9 mg/dL (2.5-4.9)
[2017-04-05 01:28] LABS: ALBUMIN 2.2 gm/dL (3.5-5.0); ANION GAP 10.6 (10.0-19.0); BLOOD UREA NITROGEN 21 mg/dL (6-24); CALCIUM 7.6 mg/dL (8.5-10.5); CHLORIDE 93 mMol/L (96-110); CO2 28 mMol/L (22-32); CREATININE 0.8 mg/dL (0.6-1.3); ESTIMATED GFR (MDRD EQUATION) > 60; PHOSPHORUS 1.8 mg/dL (2.5-4.9); POTASSIUM 3.6 mMol/L (3.7-5.1); SODIUM 128 mMol/L (135-145)
--- NOTE | 2017-04-05 02:44 | NUR ---
Significant Event: Patient is intubated/sedated. See neuro assessment. HR'S 70'S. LEVOPHED TO KEEP MAPS GREATER THAN 65. AFEBRILE. AC MODE. 40% FIO2 PEEP 8. O2 SATS GREATER THAN 93%. ABD DISTENDED FIRM AND RARE BS. NG TO LIS WITH 750ML OUT, YELLOWISH-GREEN.NO BM DURING SHIFT. THOMASON TO DD WITH ADEQ UOP. 40meq of potassium given during shift. Last NA level at 0100 was 128. Recheck at 0500. NS CHANGED TO RUN AT 25ML/HR. Follow up: MONITOR NA LEVELS, WEAN LEVO
[2017-04-05 04:16] LABS: BICARBONATE 29.5 mmol/L (18.0-23.0); PCO2 30 mmHg (35-45); PO2 94 mmHg (80-90)
[2017-04-05 05:28] LABS: ALBUMIN 2.1 gm/dL (3.5-5.0); ANION GAP 12.9 (10.0-19.0); BLOOD UREA NITROGEN 18 mg/dL (6-24); CALCIUM 7.4 mg/dL (8.5-10.5); CHLORIDE 95 mMol/L (96-110); CO2 27 mMol/L (22-32); CREATININE 0.8 mg/dL (0.6-1.3); ESTIMATED GFR (MDRD EQUATION) > 60; PHOSPHORUS 1.5 mg/dL (2.5-4.9); POTASSIUM 3.9 mMol/L (3.7-5.1); SODIUM 131 mMol/L (135-145)
[2017-04-05 08:42] LABS: ALBUMIN 2.1 gm/dL (3.5-5.0); ANION GAP 12.6 (10.0-19.0); BLOOD UREA NITROGEN 18 mg/dL (6-24); CHLORIDE 95 mMol/L (96-110); CO2 27 mMol/L (22-32); CREATININE 0.8 mg/dL (0.6-1.3); ESTIMATED GFR (MDRD EQUATION) > 60; POTASSIUM 3.6 mMol/L (3.7-5.1); SODIUM 131 mMol/L (135-145)
[2017-04-05 09:14] LABS: CALCIUM 7.2 mg/dL (8.5-10.5); PHOSPHORUS 1.5 mg/dL (2.5-4.9)
--- NOTE | 2017-04-05 09:28 | NUR ---
REC TPN @ 80 ML/HR TO MEET NUTRIENT NEEDS.
[2017-04-05 10:08] LABS: BASOPHIL % 0.3 %; EOSINOPHIL # 0.1 K/uL (0.0-0.5); EOSINOPHIL % 0.8 %; HEMATOCRIT 25.3 % (33.0-50.0); HEMOGLOBIN 9.1 g/dL (11.0-16.0); IMMATURE GRANULOCYTE # 0.1 K/uL (0.0-0.3); IMMATURE GRANULOCYTE % 0.8 %; LYMPHOCYTE # 0.7 K/uL (0.8-4.0); LYMPHOCYTE % 8.6 %; MCH 34.6 pg (27.0-34.0); MCV 96.2 fl (83.0-98.0); MONOCYTE # 0.8 K/uL (0.0-1.0); MONOCYTE % 9.5 %; MPV 8.6 fl (9.4-12.4); NEUTROPHIL # (ANC) 6.3 K/uL (1.4-9.0); NRBC % 0 /100WBC (0-0.00); PLATELET COUNT 195 K/uL (150-450); RBC 2.63 M/uL (3.50-5.50); RDW-CV 12.7 % (11.9-14.6); WBC 7.9 K/uL (4.0-11.0)
--- NOTE | 2017-04-05 17:18 | NUR ---
D: SEPTIC SHOCK I: VENT, MDI R: PT REMAINED ON 40% FIO2, BS C&D BILATERALLY, SXNED OUT SCANT TO SMALL THICK CREAMY SECRETIONS, DECREASED RR TO 12 & PEEP TO 5 TODAY, NO OTHER SIGNIFICANT CHANGES T/O DAY P: CONT.
--- NOTE | 2017-04-05 17:27 | NUR ---
Significant Event:Patient's versed turned off at 1115 and fentanyl decreased to 12.5 mcg/hr, patient opens eyes to voice and moves exts x 4 spontaneously but does not follow any commands, rests calmly, remains in SR, levophed weaned to 0.04 mcg/kg/min this shift, Vent 40% LS Clear, NG to LCS with 400 mls clear drainage, devries to DD with 3300 mls UOP, Changing IV fluids per Nephrology for a goal sodium of 128, D5W currently running @ 250mls/hr and will recheck renal panel at 1900, gave Kphos 30mmol today and 2 gms Mg Sulfate Follow up:May be able to do weaning parameters and extubate in AM
[2017-04-05 19:46] LABS: ANION GAP 11.5 (10.0-19.0); BLOOD UREA NITROGEN 13 mg/dL (6-24); CHLORIDE 97 mMol/L (96-110); CO2 26 mMol/L (22-32); CREATININE 0.8 mg/dL (0.6-1.3); ESTIMATED GFR (MDRD EQUATION) > 60; PHOSPHORUS 2.9 mg/dL (2.5-4.9); POTASSIUM 3.5 mMol/L (3.7-5.1); SODIUM 131 mMol/L (135-145)
[2017-04-05 19:52] LABS: CALCIUM 7.2 mg/dL (8.5-10.5)
[2017-04-05 23:23] LABS: ALBUMIN 1.9 gm/dL (3.5-5.0); ANION GAP 11.6 (10.0-19.0); BLOOD UREA NITROGEN 14 mg/dL (6-24); CALCIUM 7.1 mg/dL (8.5-10.5); CHLORIDE 97 mMol/L (96-110); CO2 26 mMol/L (22-32); CREATININE 0.8 mg/dL (0.6-1.3); ESTIMATED GFR (MDRD EQUATION) > 60; POTASSIUM 3.6 mMol/L (3.7-5.1); SODIUM 131 mMol/L (135-145)
--- NOTE | 2017-04-06 01:49 | NUR ---
Significant Event: Patient remains intubated/sedated. See neuro. HR'S 70'S. LEVOPHED TO KEEP MAPS GREATER THAN 65. AFEBRILE. AC MODE 30% FIO2 PEEP 5 RR 12 TV 550. O2 SATS GREATER THAN 95%. NO BM DURING SHIFT. ABD SOFT. NG TO LIS 25ML OUT. THOMASON TO DD WITH ADEQ UOP. NA LEVEL AT 1900 131, NEXT CHECK AT 0300. D5W REMAINS AT 250ML/HR. Follow up: EXTUBATE, MONITOR NA LEVELS.
[2017-04-06 03:51] LABS: BASOPHIL % 0.3 %; EOSINOPHIL # 0.1 K/uL (0.0-0.5); EOSINOPHIL % 1.4 %; HEMATOCRIT 25.7 % (33.0-50.0); HEMOGLOBIN 8.9 g/dL (11.0-16.0); IMMATURE GRANULOCYTE # 0.1 K/uL (0.0-0.3); IMMATURE GRANULOCYTE % 0.6 %; LYMPHOCYTE # 0.8 K/uL (0.8-4.0); MCH 33.7 pg (27.0-34.0); MCHC 34.6 gm/dL (32.0-36.5); MCV 97.3 fl (83.0-98.0); MONOCYTE # 0.7 K/uL (0.0-1.0); MPV 8.7 fl (9.4-12.4); NEUTROPHIL # (ANC) 6.2 K/uL (1.4-9.0); NEUTROPHIL % 78.7 %; NRBC % 0 /100WBC (0-0.00); PLATELET COUNT 189 K/uL (150-450); RBC 2.64 M/uL (3.50-5.50); RDW-CV 12.8 % (11.9-14.6); WBC 7.9 K/uL (4.0-11.0)
[2017-04-06 04:06] LABS: ANION GAP 11.3 (10.0-19.0); BLOOD UREA NITROGEN 11 mg/dL (6-24); CHLORIDE 97 mMol/L (96-110); CO2 26 mMol/L (22-32); CREATININE 0.7 mg/dL (0.6-1.3); ESTIMATED GFR (MDRD EQUATION) > 60; PHOSPHORUS 2.5 mg/dL (2.5-4.9); POTASSIUM 3.3 mMol/L (3.7-5.1); SODIUM 131 mMol/L (135-145)
[2017-04-06 04:07] LABS: ALBUMIN 1.9 gm/dL (3.5-5.0); CALCIUM 7.1 mg/dL (8.5-10.5)
[2017-04-06 04:45] LABS: BICARBONATE 26.8 mmol/L (18.0-23.0); PCO2 36 mmHg (35-45); PO2 86 mmHg (80-90)
--- NOTE | 2017-04-06 05:43 | NUR ---
Weaned FiO2 to 30% at beginning of shift, continues to have SpO2 98-100%. EtCO2 26-30. BrSs clear and dim. Suctioned small-moderate amounts of thick, cream secretions. Versed off at 0400 this AM. Plan for SBT today.
[2017-04-06 09:12] LABS: ANION GAP 12.3 (10.0-19.0); BLOOD UREA NITROGEN 9 mg/dL (6-24); CHLORIDE 98 mMol/L (96-110); CO2 25 mMol/L (22-32); CREATININE 0.7 mg/dL (0.6-1.3); ESTIMATED GFR (MDRD EQUATION) > 60; PHOSPHORUS 2.4 mg/dL (2.5-4.9); POTASSIUM 3.3 mMol/L (3.7-5.1); SODIUM 132 mMol/L (135-145)
[2017-04-06 09:26] LABS: CALCIUM 7.2 mg/dL (8.5-10.5)
[2017-04-06 15:26] LABS: CPK 65 IU/L (35-332)
--- NOTE | 2017-04-06 17:00 | NUR ---
Significant Event: PT alert, oriented to self. VSS, on room air. Extubated at 1153 today. PT went into afib, amio gtt started per protocol. NG patent to L)nare, patient is getting water flushes Q4H. R)IJ patent. No BM this shift, hypoactive bowel sounds. External fixator intact to L)arm, orthopedics called, left message. Orr patent. Up to chair with lift. Follow up:
--- NOTE | 2017-04-06 17:24 | NUR ---
D: RESPIRATOR FAILURE I: V2OO, ALBUTEROL MDI R: BREATH SOUNDS SLIGHTLY COARSE TO DIMINISHED AND CLEAR, SXN- SMALL THICK CREAM/WHITE, ET TUBE SECURE, IN CPAP 5/ PS 8, TOLERATES WELL, NIF - 23, RSBI 56, DR ORDER TO EXTUBATE
[2017-04-06 22:05] LABS: ANION GAP 11.3 (10.0-19.0); BLOOD UREA NITROGEN 8 mg/dL (6-24); CALCIUM 7.5 mg/dL (8.5-10.5); CHLORIDE 97 mMol/L (96-110); CO2 26 mMol/L (22-32); CREATININE 0.6 mg/dL (0.6-1.3); ESTIMATED GFR (MDRD EQUATION) > 60; PHOSPHORUS 2.5 mg/dL (2.5-4.9); POTASSIUM 3.3 mMol/L (3.7-5.1); SODIUM 131 mMol/L (135-145)
[2017-04-07 04:33] LABS: ANION GAP 12.6 (10.0-19.0); BLOOD UREA NITROGEN 7 mg/dL (6-24); CHLORIDE 100 mMol/L (96-110); CO2 25 mMol/L (22-32); CREATININE 0.6 mg/dL (0.6-1.3); ESTIMATED GFR (MDRD EQUATION) > 60; PHOSPHORUS 2.3 mg/dL (2.5-4.9); POTASSIUM 3.6 mMol/L (3.7-5.1); SODIUM 134 mMol/L (135-145)
[2017-04-07 04:39] LABS: CALCIUM 7.4 mg/dL (8.5-10.5)
[2017-04-07 05:04] LABS: HEMATOCRIT 26.7 % (33.0-50.0); HEMOGLOBIN 9.2 g/dL (11.0-16.0); MCH 33.6 pg (27.0-34.0); MCHC 34.5 gm/dL (32.0-36.5); MCV 97.4 fl (83.0-98.0); MPV 9.1 fl (9.4-12.4); PLATELET COUNT 192 K/uL (150-450); RBC 2.74 M/uL (3.50-5.50); RDW-CV 12.6 % (11.9-14.6); WBC 7.9 K/uL (4.0-11.0)
--- NOTE | 2017-04-07 05:37 | NUR ---
Alert. Oriented to self only. No c/o pain numbness or tingling. SHADI. Converts back and forth between SR and Afib. HR 70-110s, SBP 120-150. Afebrile. Continues on Amio gtt. Continues on Room Air. NGT clamped with water flushes given q4hrs. Max residual of 10. Follow up: Continue to monitor Na. .
[2017-04-07 05:58] LABS: ABSOLUTE NEUTROPHIL CT (ANC) 6.6 K/uL (1.4-9.0); BANDED NEUTROPHIL # 0.4 K/uL (0.0-0.1); BANDED NEUTROPHILS % 5 %; LYMPHOCYTE # 0.9 K/uL (0.8-4.0); LYMPHOCYTE % 11 %; MONOCYTE # 0.2 K/uL (0.0-1.0); SEGMENTED NEUTROPHIL # 6.2 K/uL (1.4-9.0); SEGMENTED NEUTROPHIL % 79 %
[2017-04-07 07:59] LABS: ANION GAP 10.5 (10.0-19.0); BLOOD UREA NITROGEN 6 mg/dL (6-24); CALCIUM 7.6 mg/dL (8.5-10.5); CHLORIDE 102 mMol/L (96-110); CO2 26 mMol/L (22-32); CREATININE 0.6 mg/dL (0.6-1.3); ESTIMATED GFR (MDRD EQUATION) > 60; PHOSPHORUS 2.1 mg/dL (2.5-4.9); POTASSIUM 3.5 mMol/L (3.7-5.1); SODIUM 135 mMol/L (135-145)
--- NOTE | 2017-04-07 11:10 | NUR ---
Significant Event: Transferred patient to PCU, room 6330 at 1052. Gave report to NORBERTO Resendiz at bedside. Follow up:
--- NOTE | 2017-04-07 12:45 | NUR ---
A - NUTRITION FOLLOW-UP. EXTUBATED 04/06. TX TO PCU. NG CLAMPED AT THIS TIME. LABS: K+ 3.5, GLU 117, ALB 2.0, PO4 2.1, PROBNP 2832 NEW MEDS: AMIODARONE, FOLIC ACID. DIET: NPO X3 DAYS. EST NEEDS: 1515-6323 KCAL, 77-92 GRAMS PROTEIN, FLUID NEEDS: 1ML/KCAL D - NOT APPROPRIATE FOR NUTRITION INTERVENTION AT THIS TIME. WILL REASSESS ON DAY 5. M/E - GOAL: ADVANCE DIET TOLERATED IN 2-4 DAYS.
[2017-04-07 12:49] LABS: SODIUM 133 mMol/L (135-145)
--- NOTE | 2017-04-07 14:19 | NUR ---
Significant Event:Alert to self only, follows commands, impulsive, pulls at tubes. MItten restraints on bilaterally. Increased aggitation with multiple family members interacting with patient at once. Able to pivot transfer with 2 max assist, repositioned in bed q2h at this time with 2 assist. Amiodarone gtt off at 1300, started on PO amiodarone per NG. Remains in NSR. HR in 80's. Lungs clear, spontaneous cough Follow up:
--- NOTE | 2017-04-08 05:14 | NUR ---
Significant Event: ALERT TO SELF. DISORIENTED TO TIME/PLACE. FOLLOWS SIMPLE COMMANDS. RESTLESS AND AGITATED. ATIVAN GIVEN X2. LAST DOSE WAS AT 0242. PATIENT DIDNT GET MUCH SLEEP THIS SHIFT.BED ALARM ON. NO ATTEMPTS TO GET UP W/O ASSISTENCE. RESTED IN BED ALL OF SHIFT. TURNED Q 2 HRS SIDE TO SIDE. VSS ON 1L. SR. PATIENT SHOWS NO S/S OF DISTRESS OR PAIN. IV TO R) UPPER ARM SL. R) JUGULAR WITH D5 W RUNNING AT 100 ML/H AND ZOSYN. CONTINUE WITH IV ANTIBIOTICS. SERUM NA AT [address] HARE. CONTINUE WITH D5 W. THOMASON PRESENT WITH 500 ML OUT. NO BM THIS SHIFT.NPO. ABD STILL DISTENDED AND SLIGHTLY FIRM. PATIENT PULLED NG OUT AT 1834. REINSERTED. NG TO R) NARE. CLAMPED. PATIENT GOT HIS MITTEN OFF AND AND WAS PULLING AT CORDS AND TUBES. GOT AN ORDER FOR WRIST RESTRAINTS. R) HAND HAS A WRIST RESTRAINT AND L) STILL HAS A MITTEN. FIXATOR TO L) FA INTACT. SMALL AMOUNT OF SEROSAN DRAINAGE AROUND THE PINS. Follow up: CONTINUE WITH PLAN OF CARE. up:
--- NOTE | 2017-04-08 13:19 | NUR ---
Introduced self and CM role to Benson' , Shahla who was out in the hallway by his room. Yesenia tells me that prior to coming into the hospital, Benson was living at home and she was helping take care of him. He didn't use a FWW or a cane to get around with, but does have them available to him if needed. Yesenia states that Benson does suffer from some dementia, so she knows that he might not be able to return home once he leaves our facility. She has a daughter that works at the [facility] and she would prefer that he go there for B stay when he is medically stable to leave our facility. His PCP is Dr. Fox and he is familiar with Benson case, per . Yesenia also shares with me that if he isn't able to go to [facility], she would prefer that he go to [facility] for at least some therapies to try to get stronger and if he can get home that would be wonderful, but if not then he can stay there in the [place]. She and her daughter are currently here with Benson, but she has to be gone tomorrow for an appointment of her own. We talked briefly about transportation to the [facility] if he would be able to go there. SHe is willing to transport him in the personal car if warrented by MD to do so, if not she is also ok with him having to go via ambulance. Yesenia states that she and her kids all get along well and they make decisions re:Benson care together. Her kids all live near them and the one that lives farther away in [place] does come to visit quite often. Yesenia tells me that he still has his NG tube in and they do have a restraint on his wrist as he keeps pulling at his tubes. I let her know that I would continue to follow and assist. Gave her my contact information to get ahold of me for any further questions or concerns or if her kids had questions for me. She was fine with this. Told her I would be out on Thursday but I would see her again on Thursday. No other questions, needs or concerns. CM to continue to follow and assist. Plan for [facility] or [facility] depending on his level of care and lenght of care needs.
--- NOTE | 2017-04-08 14:34 | NUR ---
A - CONSULT FOR TUBE FEEDING RECOMMENDATIONS AND EARLY FOLLOW-UP BS PRESENT, ABD DISTENDED, NG CLAMPED, HAVING LOOSE STOOL PER RN. GARBLED SPEECH, IMPULSIVE PER SHIFT REPORT. LABS: NA 133, K+ 3.5, GLU 117, ALB 2.0, PO4 2.1, PROBNP [id number] MEDS: REGLAN DIET: NPO X4 DAYS. ST RECOMMENDED NPO ON 04/07. EST NEEDS: [id number] KCAL, 77-92 GRAMS PROTEIN, FLUID NEEDS: 1ML/KCAL D - INADEQUATE ORAL INTAKE RELATED TO ALTERED GI FUNCTION EVIDENCED BY NPO X4 DAYS. I - RECOMMEND OSMOLOTE 1.5 AT 55ML/HR WITH 40ML/HR WATER FLUSHES. START AT 25ML/HR, INCREASE 25ML/HR EVERY 4-8 HOURS OR TOLERATED TILL GOAL RATE. M/E - GOAL: TO MEET >75% OF PT'S NEEDS VIA MOST APPROPRIATE ROUTE IN 2-4 DAYS. 1) WILL FOLLOW W/ TUBE FEEDING TOLERANCE, LABS AND POC.
--- NOTE | 2017-04-08 16:54 | NUR ---
Significant Event: VSS AND 2L/NC. AFEBRILE. DROWSY TODAY. WORKS WITH PT/OT; PIVOT TX TO CHAIR AND DANGLES AT BEDSIDE. NG CLAMPED, NO RESIDUALS NOTED; STARTED 250 ML WATER FLUSHES Q4H TODAY AND SALINE LOCKED PIV. NPO. MEDS THRU NG. Q8H NA PERIPHERAL CHECKS- CALL TONJIM'S RESULT TO DR. HARE; AFTERNOON VALUE REPORTED TO LORAINE GATES. CL FLUSHES WELL WITH GOOD BLOOD RETURN.REPOSITIONED Q2H AND ALOE TO BUTTOCKS. THOMASON WITH ADEQUATE UOP. SM BM X1. FAMILY UPDATE ON POC. ST CONSULT FOR RECOMMENDATION ON TF. LT)HAND MITTEN TO SURGICAL HAND AND RT) HAND WRIST RESTRAINT CONTINUE (NON-SURGICAL STRONGER HAND); DOES STILL PULL AT LINES AND UP TO FACE/NG TUBE. Follow up: CONTINUE PLAN OF CARE.
--- NOTE | 2017-04-09 04:42 | NUR ---
Significant Event: Patient is alert only to self. VSS on 2L. NG tube clamped. 250ml flushes Q4H. Patient tolerates well. Mitten restraint to L) hand and soft restraint to R) wrist due to pulling at NG tube. Pins to L) forearm, wrapped with gauze. Patient denies any pain this shift. Orr intact 575ml output. Bowel sounds present, but no bowel movement this shift. Dr. Coleman called with 2200 sodium per his request. No new orders received. Follow up: Continue plan of care
[2017-04-09 06:20] LABS: HEMOGLOBIN 9.2 g/dL (11.0-16.0); MCH 33.7 pg (27.0-34.0); MCHC 35.4 gm/dL (32.0-36.5); MCV 95.2 fl (83.0-98.0); PLATELET COUNT 193 K/uL (150-450); RBC 2.73 M/uL (3.50-5.50); RDW-CV 12.2 % (11.9-14.6); WBC 5.2 K/uL (4.0-11.0)
[2017-04-09 06:34] LABS: ALBUMIN 2.1 gm/dL (3.5-5.0); ALK PHOS 53 IU/L (33-138); ALT 20 IU/L (12-78); ANION GAP 14.2 (10.0-19.0); AST 28 IU/L (10-40); BLOOD UREA NITROGEN 8 mg/dL (6-24); CHLORIDE 92 mMol/L (96-110); CO2 24 mMol/L (22-32); CREATININE 0.5 mg/dL (0.6-1.3); ESTIMATED GFR (MDRD EQUATION) > 60; MAGNESIUM 1.6 mg/dL (1.8-2.6); POTASSIUM 3.2 mMol/L (3.7-5.1); SODIUM 127 mMol/L (135-145); TOTAL BILIRUBIN 0.9 mg/dL (0.0-1.5)
[2017-04-09 06:39] LABS: CALCIUM 7.4 mg/dL (8.5-10.5); TOTAL PROTEIN 4.8 g/dL (6.0-8.4)
[2017-04-09 07:52] LABS: ABSOLUTE NEUTROPHIL CT (ANC) 4.2 K/uL (1.4-9.0); LYMPHOCYTE # 0.3 K/uL (0.8-4.0); LYMPHOCYTE % 5 %; MONOCYTE # 0.5 K/uL (0.0-1.0); SEGMENTED NEUTROPHIL # 4.2 K/uL (1.4-9.0); SEGMENTED NEUTROPHIL % 81 %
[2017-04-09 16:52] LABS: BILIRUBIN URINE NEGATIVE (NEGATIVE); BLOOD URINE 250 /UL (NEGATIVE); COLOR URINE YELLOW (YELLOW); GLUCOSE URINE NEGATIVE (NEGATIVE); KETONE URINE 50 mg/dL (NEGATIVE); LEUKOCYTES URINE 100 /UL (NEGATIVE); NITRITE URINE NEGATIVE (NEGATIVE); PROTEIN URINE 30 mg/dL (NEGATIVE); TURBIDITY URINE 1+ (CLEAR); UROBILINOGEN URINE 1 mg/dL (NORMAL)
[2017-04-09 17:17] LABS: BACTERIA URINE MODERATE (NEGATIVE); MUCUS URINE 3+ (NEGATIVE)
--- NOTE | 2017-04-09 18:51 | NUR ---
Significant Event:Patient has been fairly alert throughout shift, more so this afternoon. He is disoreintated to place and time, but he does know he isn't in [place]. Has restraints on- mitten to left and soft restraint to right. Did pull NG out once, and it was reinserted without difficulty. Did get IV mg and Kcl today, and KCl per tube. And IV Mg. Tolerating water flushes. Follow up:Start tube feeding
--- NOTE | 2017-04-10 07:01 | NUR ---
Significant Event: Patient has been alert and disoriented x3. Has not answered any questions appropriately and has not followed any commands. Continues to be in mitten restraint on left upper extremity and soft wrist restraint on right upper extremity. External fixator with pins to left upper extremity covered with gauze, C/D/I. Orr in place with 475 mL UOP. NG tube in R) nare, tube feed started at 2100. Patient's bowel sounds have been more active throughout the night. Last residual checked around 0400 was 40 mL. 250 mL water flushes q.6hr. Vital signs are stable, on 1-2L O2. Follow up: Continue to monitor per plan of care.
[2017-04-10 07:34] LABS: HEMATOCRIT 26.9 % (33.0-50.0); HEMOGLOBIN 9.8 g/dL (11.0-16.0); MCH 33.7 pg (27.0-34.0); MCHC 36.4 gm/dL (32.0-36.5); MCV 92.4 fl (83.0-98.0); MPV 8.9 fl (9.4-12.4); PLATELET COUNT 197 K/uL (150-450); RBC 2.91 M/uL (3.50-5.50); WBC 6.4 K/uL (4.0-11.0)
[2017-04-10 07:57] LABS: ABSOLUTE NEUTROPHIL CT (ANC) 5.3 K/uL (1.4-9.0); ALBUMIN 2.3 gm/dL (3.5-5.0); ALK PHOS 56 IU/L (33-138); ALT 22 IU/L (12-78); ANION GAP 12.9 (10.0-19.0); AST 29 IU/L (10-40); BLOOD UREA NITROGEN 12 mg/dL (6-24); CHLORIDE 92 mMol/L (96-110); CO2 25 mMol/L (22-32); CREATININE 0.5 mg/dL (0.6-1.3); ESTIMATED GFR (MDRD EQUATION) > 60; LYMPHOCYTE # 0.6 K/uL (0.8-4.0); LYMPHOCYTE % 10 %; MONOCYTE # 0.5 K/uL (0.0-1.0); POTASSIUM 3.9 mMol/L (3.7-5.1); SEGMENTED NEUTROPHIL # 5.3 K/uL (1.4-9.0); SEGMENTED NEUTROPHIL % 82 %; SODIUM 126 mMol/L (135-145); TOTAL PROTEIN 5.1 g/dL (6.0-8.4)
[2017-04-10 07:58] LABS: CALCIUM 7.3 mg/dL (8.5-10.5); TOTAL BILIRUBIN 0.7 mg/dL (0.0-1.5)
[2017-04-10 11:31] LABS: BICARBONATE 27.2 mmol/L (18.0-23.0); PCO2 40 mmHg (35-45); PO2 83 mmHg (80-90)
--- NOTE | 2017-04-10 14:08 | NUR ---
A-NUTRITION F/U DOBHOFF PLACED; TF STARTED 04/09. (+)BS; ABD SOFT. NO EDEMA LABS: NA 126, K+ 3.9, GLU 96, BUN 12, LIFE INSURANCE SPECIALIST 0.5, ALB 2.3 NO NEW MEDS SINCE LAST F/U DIET RX: NPO; OSMOLITE 1.5 CURRENTLY AT 25 ML/HR W/NO RESIDUALS. GOAL FOR OSMOLITE 1.5 IS 55 ML/HR. THIS WILL PROVIDE 1980 KCALS, 83 GM PROTEIN, AND 1006 ML FREE WATER. EST NUTR NEEDS: [id number] KCALS AND 77-92 GM PROTEIN D-AT NUTRITION RISK W/INADEQUATE NUTRIENT INTAKE R/T DIFF. SWALLOWING AEB SPEECH EVAL, NPO STATUS, NEED FOR EN. I-ADVANCE TF TO GOAL RATE M/E-GOAL:CONTINUED TF TOLERANCE AND TF TO MEET NUTR. NEEDS 1)F/U TF RATE & TOLERANCE, LABS, WT, AND POC IN 3-5 DAYS 2)ASSIST NEEDED
--- NOTE | 2017-04-10 20:02 | NUR ---
D:Patient resting in bed at 1130. WATER REUSE PROGRAM MANAGER in to get BP, she got SBP in the 60's and then the 40's, and then we could get it to read. Dr. Hernandez was here, and ordered some ABG's and pCXR. also in to see patient. We switched out BP cuff, and moved it to the right leg. BP was 162/92. Patient was slightly gurlgly, but breath sounds sounded pretty clear. No residuals on tube feeding. Dr. Patel called the and talked with her about code status, she wanted patient to remain DNR, but was ok with patient being intubated. P:Continue monitoring
--- NOTE | 2017-04-10 20:07 | NUR ---
D:Patient returned to bed at about 1600. No change in assessment at this time. Tube feeding increased to 50 ml/hr per orders. Had 13 ml residual. Then at 1730, patient was alarming, went into room, sats in the low 80's. Patient is gurgling, but not much different than dariner, Was mouth breathing. Put oxygen in patient's mouth, but then patient started trying to suck on oxygen tubing. Turned O2 up to 4L and then 6L without much change in O2 sats. Resp were shallow. Dr. Magaña notified. He ordered Lasix and some lab work in the morning. But sats wouldn't rebound, went from simple mask to non rebreather, and patient was barely 88-89%. Called RT and again, this time orders for ABG's and dc tube feeding. Lasix had been given. Dr. Andersen came to see patient about 1814, orders for CXR stat. And then he wanted Suction connected to NG. Per Dr. Andersen CXR showing collapsed lunch. RT in room still from drawing ABG's. ICU nurse here. Dr. Andersen did intubate patient at 192. Patient transferred to ICU at 193. Patient had chest x-ray following intubation before transfer. He was hypotesive. Family was notifed about intubation and moving to ICU at 1906, Kiki. talked with Shahla. See [facility] record.
[2017-04-10 20:48] LABS: BICARBONATE 28.4 mmol/L (18.0-23.0); PCO2 48 mmHg (35-45)
[2017-04-10 20:49] LABS: PO2 63 mmHg (80-90)
[2017-04-11 04:18] LABS: BICARBONATE 31.2 mmol/L (18.0-23.0); PO2 74 mmHg (80-90)
[2017-04-11 04:21] LABS: PCO2 34 mmHg (35-45)
--- NOTE | 2017-04-11 04:22 | NUR ---
Patient was intubated at 1921 with an 8.0 tube, 23 at lip on PCU. Patient was transfered to ICU around 1939. Shortly after arrival patient was bronched by Dr Chang. Patient's vent settings are AC, VT 600, RR 15, and P10. Patient started the shift at 100% FIO2 and has been decreased to 90%. Breath sounds are coarse to slightly coarse and clear with suctioning. Getting moderate to copious amounts of thick cream out when suctioning. End tidal has been in the mid 20's. Will continue to monitor patienet.
--- NOTE | 2017-04-11 05:30 | NUR ---
Significant Event: ARRIVED TO ICU AT 1940 FROM PCU, AFTER RAPID RESPONSE FOR HYPOXIA. PATIENT WAS INTUBATED AND TRANSFERED TO ICU. ABLE TO WEAN FIO2 TO 90%, PEEP 10. OVERBREATHES RATE AT TIMES. BRONCH COMPLETE UPON ARRIVAL. REMOVED MUCOUS PLUG, PER DR. RAVI THE L) LUNG WAS NO LONGER COLLAPSED. LUNG SOUND SLIGHTLY COARSE AT TIMES. ON PRECEDEX AT 0.4MCG/KG/HR. RESTLESS AT TIMES. DID GIVEN FENTANYL 50MCG IVP X2 WITH RELIEF. HAD EPISODE OF HYPOTENSION. STARTED ON LEVO UPON ARRIVAL TO ICU. BECAME HYPOTENSIVE AT 0000. STARTED ON DOPAMINE AND EPI. DOPAMINE AT 8MCG/KG/MIN, EPI AT 1MCG/MIN. HR 60-100. TMAX OF 100.9. TYLENOL GIVEN X1. MD AWARE OF TEMP. NO NEW ORDERS RECEIVED. OG TO LIS, 300ML OUT. NO BM. ACCUCHECKS WNL. GOOD UOP FROM THOMASON. BATH COMPLETE. TURNED Q2HR. Follow up: WEAN FIO2, GTTS. NA LEVELS Q8HR, PERIPHERAL DRAW.
[2017-04-11 06:59] LABS: BASOPHIL # 0.1 K/uL (0.0-0.2); BASOPHIL % 0.4 %; EOSINOPHIL % 0.1 %; HEMATOCRIT 30.4 % (33.0-50.0); IMMATURE GRANULOCYTE # 0.2 K/uL (0.0-0.3); IMMATURE GRANULOCYTE % 1.1 %; LYMPHOCYTE # 0.6 K/uL (0.8-4.0); LYMPHOCYTE % 3.5 %; MCH 33.5 pg (27.0-34.0); MCHC 36.2 gm/dL (32.0-36.5); MCV 92.7 fl (83.0-98.0); MONOCYTE # 1.2 K/uL (0.0-1.0); MONOCYTE % 7.1 %; MPV 8.4 fl (9.4-12.4); NEUTROPHIL # (ANC) 14.7 K/uL (1.4-9.0); NEUTROPHIL % 87.8 %; NRBC % 0 /100WBC (0-0.00); PLATELET COUNT 192 K/uL (150-450); RBC 3.28 M/uL (3.50-5.50); RDW-CV 12.3 % (11.9-14.6)
[2017-04-11 07:07] LABS: WBC 16.7 K/uL (4.0-11.0)
[2017-04-11 07:12] LABS: ALBUMIN 2.2 gm/dL (3.5-5.0); ANION GAP 11.3 (10.0-19.0); BLOOD UREA NITROGEN 11 mg/dL (6-24); CALCIUM 7.5 mg/dL (8.5-10.5); CHLORIDE 91 mMol/L (96-110); CO2 28 mMol/L (22-32); CREATININE 0.6 mg/dL (0.6-1.3); ESTIMATED GFR (MDRD EQUATION) > 60; POTASSIUM 3.3 mMol/L (3.7-5.1); SODIUM 127 mMol/L (135-145)
[2017-04-11 07:18] LABS: PHOSPHORUS 1.3 mg/dL (2.5-4.9)
--- NOTE | 2017-04-11 14:03 | NUR ---
Significant Event: Patient is alert and following commands, has been off of sedation since 0700. Opens eyes and nods appropriately. Shakes head no to pain. Fio2 decreased from 90% down to 40% and PEEP decreased down to 5 from 10. Still suctioning thick creamy secretions. Weaning off of blood pressure medications, epinephrine gtt off, dopamine gtt down to 1mcg/kg/min and levophed currently at 0.18mcg/kg/min. Scrotal/penis is edematis this afternoon. Pedal pulses 1+, no cardiac event/arrythmis this shift. Afebrile. UOP excellent, clear yellow. Started on vancomycin this shift. L) arm has external fixator in place. Follow up:
--- NOTE | 2017-04-11 14:07 | NUR ---
Speech Tx Note: Per notes and nursing, pt had a rapid response last night and was transferred to ICU. Pt is now intubated. Will follow up with pt and nsg to determine best direction for speech Tx. Julisa Castillo M.A., CCC-COORDINATOR OF PLACEMENT
[2017-04-12 04:37] LABS: BICARBONATE 28.4 mmol/L (18.0-23.0)
[2017-04-12 04:42] LABS: PCO2 27 mmHg (35-45); PO2 127 mmHg (80-90)
[2017-04-12 04:59] LABS: BLOOD UREA NITROGEN 9 mg/dL (6-24); CHLORIDE 94 mMol/L (96-110); CO2 27 mMol/L (22-32); CREATININE 0.5 mg/dL (0.6-1.3); ESTIMATED GFR (MDRD EQUATION) > 60; SODIUM 131 mMol/L (135-145)
[2017-04-12 05:01] LABS: ANION GAP 12.9 (10.0-19.0); CALCIUM 6.9 mg/dL (8.5-10.5); PHOSPHORUS 1.6 mg/dL (2.5-4.9); POTASSIUM 2.9 mMol/L (3.7-5.1)
--- NOTE | 2017-04-12 05:24 | NUR ---
PT. ON VENT AT 40 DOWN TO 30% WITH SATS 100%. ETCO2 24-28. BREATH SOUNDS ARE CLEAR AND DIMINISHED T/O. SUCTIONED A MODERATE AMOUNT OF THICK YELLOW SECRETIONS. WILL CONTINUE TO FOLLOW UNTIL FURTHER NOTICE.
--- NOTE | 2017-04-12 06:40 | NUR ---
Significant Event: AWAKE MOST OF NIGHT. FOLLOWS COMMANDS MOST OF THE TIME. DOES ATTEMPT TO PULL OUT TUBES, RE-ORIENTED. FAMILY AT BEDSIDE. HR 58-70'S. WEANED OFF LEVO AND DOPAMINE. CHANGED TO CPAP AT 0500. RR 18-20'S. ABG THIS AM HAD CRITICAL PH OF 7.63, TAKEN PRIOR TO CPAP TRIAL. DECREASED TIDAL VOLUME TO 500 WHEN BACK IN RATE. LUNG SOUNDS SLIGHTLY COARSE AT TIMES. THICK CREAMY SPUTUM. OG TO LIS, 500ML OUT. BOWEL SOUNDS HYPOACTIVE THIS AM. NO BM. ADEQUATE UOP. TMAX OF 101.1. DR. KINNEY NOTIFIED. NO NEW ORDERS RECEIVED. GAVE TYLENOL X2. BATH COMPLETE. Follow up: CONTINUE TO MONITOR.
--- NOTE | 2017-04-12 14:01 | NUR ---
Significant Event: Patient is alert, following commands and making needs known. PERRLA. Up to chair today with mechanical lift, patient is stiff and has a hard time bending at joints. L) arm in an external fixator. Fio2 decreased to 30%, and has been in CPAP mode all day, regular rate and pulling good TV. Afebrile. NSR some ectopy observed. K-phos finished this shift along with PO KCL that was given. Repeat KCL at 1400 today. Orr draining good UOP. Possible extubation tomorrow. Follow up:
--- NOTE | 2017-04-12 17:32 | NUR ---
D: RESPIRATORY FAILURE I: V2OO, ALBUTEROL MDI R: BREATH SOUNDS COARSE TO SLIGHTLY COARSE THROUGHOUT, SXN- MODERATE THICK YELLOW, ET TUBE SECURE, CUFF AT MINIMAL OCCLUSIVE PRESSURE, IN CPAP 5/ PS 10 FOR APPROX 12HRS, NIF -17, RSBI 89, BACK TO RATE FOR NIGHT P: CONTINUE CURRENT THERAPY, WEAN OFF VENTILATOR
[2017-04-13 04:00] LABS: BICARBONATE 26.9 mmol/L (18.0-23.0); PCO2 30 mmHg (35-45); PO2 110 mmHg (80-90)
--- NOTE | 2017-04-13 05:15 | NUR ---
PT. ON VENT 30% WITH SATS 96-100%. ETCO2 28-30. BREATH SOUNDS HAVE BEEN CLEAR AND DIMINISHED T/O WITH OCCASIONAL COARSENESS IN THE UPPER AIRWAYS. SUCTIONED A SMALL TO MODERATE AMOUNT OF THCIK YELLOW SECRETIONS. PLACED INTO CPAP 5/10 THIS AM TOLERATING WELL. WILL CONTINUE TO DO CPAP TRIALS AND WORK TOWARDS EXTUBATION.
[2017-04-13 06:31] LABS: HEMOGLOBIN 8.1 g/dL (11.0-16.0); MCV 96.7 fl (83.0-98.0); MPV 9.4 fl (9.4-12.4); RDW-CV 12.8 % (11.9-14.6); WBC 3.6 K/uL (4.0-11.0)
--- NOTE | 2017-04-13 06:33 | NUR ---
Significant Event: VERY RESTLESS AT TIMES. PRECEDEX STARTED AT 0.5MCG/KG/HR MOST OF NIGHT. WAKES EASILY, FOLLOWS COMMANDS. HR 50-60'S. MAP 60-70'S. UOP 20-30ML/HR. NOTIFIED OF LOW BP AND LOW UOP. OK FOR MAP >60, MONITOR UOP. HAD 450ML UOP OVERNIGHT. CONTINUES ON VENT. CHANGED TO CPAP AT 0500. LUNG SOUNDS SLIGHTLY COARSE AT TIMES. TF AT 55ML/HR. NO RESIDUALS. VERY LARGE BM X2 THIS AM. ACCUCHECKS WNL. BATH COMPLETE. TURNED Q2HR. Follow up: CONTINUE TO MONITOR.
[2017-04-13 06:36] LABS: HEMATOCRIT 23.6 % (33.0-50.0); MCH 33.2 pg (27.0-34.0); MCHC 34.3 gm/dL (32.0-36.5); PLATELET COUNT 95 K/uL (150-450); RBC 2.44 M/uL (3.50-5.50)
[2017-04-13 06:45] LABS: ALK PHOS 62 IU/L (33-138); ALT 21 IU/L (12-78); ANION GAP 11.3 (10.0-19.0); AST 27 IU/L (10-40); BLOOD UREA NITROGEN 13 mg/dL (6-24); CHLORIDE 99 mMol/L (96-110); CO2 26 mMol/L (22-32); CREATININE 0.7 mg/dL (0.6-1.3); ESTIMATED GFR (MDRD EQUATION) > 60; POTASSIUM 3.3 mMol/L (3.7-5.1); SODIUM 133 mMol/L (135-145); TOTAL BILIRUBIN 0.6 mg/dL (0.0-1.5)
[2017-04-13 06:48] LABS: ALBUMIN 1.9 gm/dL (3.5-5.0); CALCIUM 7.1 mg/dL (8.5-10.5); TOTAL PROTEIN 4.2 g/dL (6.0-8.4)
[2017-04-13 09:12] LABS: ABSOLUTE NEUTROPHIL CT (ANC) 3.3 K/uL (1.4-9.0); BANDED NEUTROPHIL # 0.8 K/uL (0.0-0.1); BANDED NEUTROPHILS % 21 %; LYMPHOCYTE # 0.1 K/uL (0.8-4.0); LYMPHOCYTE % 3 %; MONOCYTE # 0.1 K/uL (0.0-1.0); SEGMENTED NEUTROPHIL # 2.6 K/uL (1.4-9.0); SEGMENTED NEUTROPHIL % 71 %
--- NOTE | 2017-04-13 10:25 | NUR ---
A-NUTRITION F/U 04/10-RAPID RESPONSE FOR HYPOXIA; COLLAPSED LUNG. INTUBATED AND PLACED ON THE VENT. EMERGENT BRONCH. PUT ON CPAP MODE AT 0500 THIS MORNING. EXTERNAL FIXATOR TO L)WRIST. LABS: NA 133, K+ 3.3, GLU 121, BUN 13, HOME HEALTH BILLING SPECIALIST 0.7, ALB 1.9 MEDS: ADRENALIN, ZOSYN, PROTONIX, VANCOMYCIN, KCL LIQUID DIET RX: NPO; 55 ML/HR OSMOLITE 1.5; PROVIDING 1980 KCALS, 83 GM PROTEIN, AND 1006 ML FREE WATER. (+)BM; NO RESIUDALS FROM TF; APPEARS TO BE TOLERATING TF WITHOUT DIFFICULTY EST NUTR NEEDS: [id number] KCALS AND 77-92 GM PROTEIN D-AT NUTRITION RISK W/DIFF. SWALLOWING R/T VENT SUPPORT AEB NEED FOR EN I-CONTINUE W/CURRENT TF RX M/E-GOAL: CONTINUED TOLERANCE OF TF 1)F/U TF, RESP. STATUS, AND POC IN 2-3 DAYS 2)ASSIST NEEDED
--- NOTE | 2017-04-13 11:00 | NUR ---
Called and spoke with of patient, informed her that patient was not doing well off of the ventilator, asked her what she would like us to do if she would want him to be reintubated. She informed me she would talk with her daughter Claudette and call me back. After 8 mins I called her back and she said that she would like to make the patient comfortable. I informed her that the patient may before she can get here, and she stated that if its his time to go, then to let him go. Then called daughter Claudette and just reiterated what I informed her mom about, and she was in agreeance with her mother to let her father go if he needed to. I told them I would try to keep him alive until they get here on the bipap machiene but they understood the complexity of the situation.
--- NOTE | 2017-04-13 14:37 | NUR ---
Patient made comfort cares and bipap mask was taken off at this time.
--- NOTE | 2017-04-13 14:37 | NUR ---
All family in room, took bipap mask off of patient. Premedicated patient with Robinol and morphine and ativan. Patient at 1454, was very comfortable and had non labored respirations.
--- NOTE | 2017-04-13 16:00 | NUR ---
Notified [facility] of patient's . They stated they would call a Sanjeev Hoffman from [facility] to bean picker the patient and do the embolming process. Gave her the information about the patient.
== END 2017-04-13 14:54 | disposition expired | DRG 871 ==
LOC: GPCU 10:00 → GICU 10:00 → GPCU 04-07 10:52 → GICU 04-10 20:07
PROVIDERS: Family Medicine; Hospitalist; Internal Medicine; Internal Medicine Critical Care Medicine; Internal Medicine Nephrology; Nurse Practitioner; ADMIT Internal Medicine
PROC: 05HM33Z Insertion of Infusion Device into Right Internal Jugular Vein, Percutaneous Approach (ICD-10-PCS; principal; 2017-04-04)
PROC: B543ZZA Ultrasonography of Right Jugular Veins, Guidance (ICD-10-PCS; 2017-04-04)
PROC: 0BC78ZZ Extirpation of Matter from Left Main Bronchus, Via Natural or Artificial Opening Endoscopic (ICD-10-PCS; 2017-04-04)
PROC: 0BH18EZ Insertion of Endotracheal Airway into Trachea, Via Natural or Artificial Opening Endoscopic (ICD-10-PCS; 2017-04-04)
PROC: 5A1945Z Respiratory Ventilation, 24-96 Consecutive Hours (ICD-10-PCS; 2017-04-04)
PROC: 0BH18EZ Insertion of Endotracheal Airway into Trachea, Via Natural or Artificial Opening Endoscopic (ICD-10-PCS; 2017-04-10)
DX: A41.9 Sepsis, unspecified organism (principal); I21.4 Non-ST elevation (NSTEMI) myocardial infarction; J96.01 Acute respiratory failure with hypoxia; J69.0 Pneumonitis due to inhalation of food and vomit; R65.21 Severe sepsis with septic shock; G93.40 Encephalopathy, unspecified; J90 Pleural effusion, not elsewhere classified; K56.69 Other intestinal obstruction; T17.890A Other foreign object in other parts of respiratory tract causing asphyxiation, initial encounter; I48.92 Unspecified atrial flutter; J98.19 Other pulmonary collapse; E87.1 Hypo-osmolality and hyponatremia; Z51.5 Encounter for palliative care; Z79.01 Long term (current) use of anticoagulants; K59.00 Constipation, unspecified; I48.0 Paroxysmal atrial fibrillation; F03.90 Unspecified dementia, unspecified severity, without behavioral disturbance, psychotic disturbance, mood disturbance, and anxiety; I10 Essential (primary) hypertension; E78.5 Hyperlipidemia, unspecified; N40.0 Benign prostatic hyperplasia without lower urinary tract symptoms; Z87.891 Personal history of nicotine dependence; I25.10 Atherosclerotic heart disease of native coronary artery without angina pectoris; Z79.82 Long term (current) use of aspirin; F10.20 Alcohol dependence, uncomplicated; J30.9 Allergic rhinitis, unspecified; K21.9 Gastro-esophageal reflux disease without esophagitis; Z95.1 Presence of aortocoronary bypass graft; Z66 Do not resuscitate; Z23 Encounter for immunization
CPT/HCPCS: C9113; J0153; J0171; J0282; J0461; J1120; J1265; J1644; J1940; J2060; J2250; J2270; J2370; J2543; J2597; J2704; J2765; J2997; J3010; J3370; J3475; J3480; J7030; J7040; J7050; J7060; J7120; P9047

== ENCOUNTER → 2017-04-04 | Outpatient (CLI) | payer MEDICARE, BC ==
[~2017-04-04] MED LIST: ASCORBIC ACID500 MG PO; ASPIRIN LO-DOSE81 MG PO; BACTRIM DS1 TAB PO; CALCIUM 600 +1 EA12 PO; CLARITIN10 MG PO; COLACE100 MG PO; FOLIC ACID1 MG PO; LOTENSIN20 MG PO; MIRALAX17 GM PO; MULTIPLE VITAM1 EACH PO; PRILOSEC20 MG PO; PROTONIX40 MG PO; TERAZOSIN HCL10 MG PO; THIAMINE HCL100 MG PO; VITAMIN D35000 UNI1 PO; ZOCOR40 MG PO
== END | disposition disaster alternative care site (69) ==
LOC: GAIR 08:09
DX: I95.9 Hypotension, unspecified (principal); I10 Essential (primary) hypertension; I25.10 Atherosclerotic heart disease of native coronary artery without angina pectoris; E78.5 Hyperlipidemia, unspecified; Z79.82 Long term (current) use of aspirin; Z79.899 Other long term (current) drug therapy; Z95.1 Presence of aortocoronary bypass graft; Z86.59 Personal history of other mental and behavioral disorders
CPT/HCPCS: A0422; A0431; A0436; J3010; J7050